=== PATIENT | male | born 2000 | race Two or more races ===

== ENCOUNTER 2021-12-27 22:28 | Emergency (ER) | payer OTHER ==
[~2021-12-27] VITALS: Ht 167.6 cm; Wt 61.2 kg
--- NOTE | 2021-12-27 22:35 | NUR ---
pt jamila ra for sz at home.
--- NOTE | 2021-12-27 22:38 | NUR ---
Dr. Leal in room for BLAZE.
[2021-12-27] MEDS ORDERED: levETIRAcetam IV 1,000 MG in IV DEXTROSE 5% 100 ML IV ONE (22:45)
[2021-12-27 23:00] LABS: CARBON DIOXIDE 31 mmol/L (21-32); CHLORIDE 106 mmol/L (98-107); GLUCOSE 83 mg/dL (74-106); POTASSIUM 3.5 mmol/L (3.5-5.1); UREA NITROGEN, BLOOD 9 mg/dL (7-18)
[2021-12-27 23:01] LABS: MEAN CORPUSCULAR HEMOGLOBIN 32.4 uug (23.8-33.4); MEAN CORPUSCULAR VOLUME 90.6 fL (73.0-96.2); PLATELET COUNT (AUTO) 166 K/uL (152-348)
[2021-12-27 23:07] LABS: ALANINE AMINOTRANSFERASE 16 U/L (16-63); ALKALINE PHOSPHATASE 77 U/L (50-136); ASPARTATE AMINOTRANSFERASE 11 U/L (15-37); BILIRUBIN,DIRECT < 0.1 mg/dL (0.0-0.2); BILIRUBIN,TOTAL 0.3 mg/dL (0.2-1.0); TOTAL PROTEIN, SERUM 6.6 g/dL (6.4-8.2)
[2021-12-27] MEDS ORDERED: levETIRAcetam 500 MG/5 ML VIAL IV ONE (23:10)
[2021-12-27 23:11] LABS: ETHANOL < 3 MG/DL (0-0)
[2021-12-28 00:56] LABS: *AMPHETAMINE, URINE POSITIVE (NEGATIVE); *CANNABINOID, URINE NEGATIVE (NEGATIVE); *COCCAINE, URINE NEGATIVE (NEGATIVE); *OPIATE, URINE NEGATIVE (NEGATIVE); *PHENCYCLIDINE SCREEN,URINE NEGATIVE (NEGATIVE)
--- NOTE | 2021-12-28 02:16 | NUR ---
I called the pt's father Thomas he states the gf is coming to roll picker the pt, as I informed the father that his son is ready for d/c home.
--- NOTE | 2021-12-28 02:18 | NUR ---
pt wakes up pt converses with the nurse, pt understands the gf is coming for him as he will be d/c home.
--- NOTE | 2021-12-28 02:54 | NUR ---
Patient discharged to home in stable condition. Written and verbal after care instructions given. Patient verbalizes understanding of instructions. Stressed follow up or return to ER for worsening s/s.
[2021-12-28 02:55] VITALS: BP 110/70
[2021-12-28 06:55] LABS: *BILIRUBIN,URIN NEGATIVE (NEGATIVE); *BLOOD, URINE NEGATIVE (NEGATIVE); *CLARITY,URINE CLEAR (CLEAR); *COLOR,URINE YELLOW (YELLOW); *KETONES,URINE NEGATIVE (NEGATIVE); *UROBILINOGEN,URINE 0.2 E.U./dl (NORMAL); LEUKOCYTE ESTERASE ,URINE NEGATIVE (NEGATIVE); NITRITE, URINE NEGATIVE (NEGATIVE); UGLUCOSE NEGATIVE (NEGATIVE)
== END 2021-12-28 02:55 | disposition home or self-care (01) ==
LOC: ER 22:33 → EDBD 22:33 → ER 12-28 02:55
DX: G40.909 Epilepsy, unspecified, not intractable, without status epilepticus (principal); Z91.14 Patient's other noncompliance with medication regimen
CPT/HCPCS: 36415; 80048; 80076; 80307; 80320; 81003; 85025; 93005; 96365; 99284; J1953; A4663; C1758; G0480